=== PATIENT | female | born 1990 | race Caucasian/White ===

== ENCOUNTER 2016-12-07 22:48 | Inpatient (IN) | payer BC, MEDICAID ==
[~2016-12-07] VITALS: Ht 129.5 cm; Wt 58.0 kg
--- NOTE | ~2016-12-07 | DS ---
[facility] AGE: 26 Y [address] ROOM: [place] [address] LOCATION: [facility] ADMIT DATE: 12/07/2016 Discharge Summary DISCHARGE DATE: 12/11/2016 FAMILY PHYSICIAN: Sumeet Garcia MD ATTENDING PHYSICIAN: Kj Toledo DISCHARGE DIAGNOSES: 1. Arrest of labor. 2. 31 weeks 6 day IUP. 3. Tobacco abuse. REASON FOR ADMISSION: labor. PROCEDURES DURING ADMISSION: None. HOSPITAL COURSE: The patient is a 26-year-old, G2, P1 who presented to [place] on 12/07 complaining of contractions. She was found to be 3-4 cm dilated. She was given Celestone for lung maturity. She was started on clindamycin for GBS prophylaxis and magnesium sulfate for tocolysis as well as neural protection. The patient was subsequently transferred to [facility] where she was found to still be 4 cm dilated. She did receive her second dose of Celestone on 12/08. Her magnesium was continued for another 24 hours after her second dose of Celestone. The patient remained stable throughout her stay without any more contractions. On 12/11, she was found to be still 450 and high. Her GBS culture did come back negative during her admission and she was deemed stable for discharge. DISCHARGE MEDICATIONS: 1. Colace. 2. vitamins. DISCHARGE INSTRUCTIONS: The patient is instructed to call our office number with contractions, vaginal bleeding, rupture of membranes, or no movement. She was also instructed on pelvic rest and to limit her activity to only necessary activities. FOLLOWUP: The patient will follow up later this week in our office. MD ERLINDA ROB/rock PATIENT'S NAME: [facility] AGE: 26 Y [address] ROOM: [place] [address] LOCATION: [facility] ADMIT DATE: 12/07/2016 Discharge Summary DISCHARGE DATE: 12/11/2016 FAMILY PHYSICIAN: Sumeet Garcia MD ATTENDING PHYSICIAN: Kj Toledo /[id number] d: 12/11/16 0729 t: 12/13/16 1131, DISCHARGE SUMMARY
--- NOTE | ~2016-12-07 | DS ---
PATIENT'S NAME: MARIALUISA MURRAY [facility] AGE: 26 Y [address] [place] [facility] [place] [place], [place] [address] LOCATION: [facility] ADMIT DATE: 12/07/2016 Discharge Summary DISCHARGE DATE: 12/11/2016 FAMILY PHYSICIAN: Sumeet Garcia MD ATTENDING PHYSICIAN: Kj Toledo DISCHARGE DIAGNOSES: 1. Arrested labor. 2. A 31-week 6-day intrauterine . 3. Tobacco abuse. REASON FOR ADMISSION: labor. PROCEDURES DURING ADMISSION: None. HOSPITAL COURSE: The patient is a 26-year-old , who presented to the emergency room in [place] on 12/07 complaining of contractions. She was found to be 3 to 4 cm dilated. She was given Celestone, clindamycin, and magnesium sulfate, and was subsequently transferred to [facility]. The patient received her second dose of Celestone on 12/08 and magnesium was continued until 24 hours after the last dose. The patient remained 4 cm dilated. On hospital day #5, she was checked and found to still be 4, 50 and high, and thus was deemed stable for discharge. DISCHARGE MEDICATIONS: 1. vitamin. 2. Colace. DISCHARGE INSTRUCTIONS: The patient was instructed to call with vaginal bleeding, loss of fluid, or irregular contractions. She was instructed on pelvic rest. FOLLOWUP: The patient will follow up later this week in our office. She was given our office number prior to discharge and was instructed to call with any concerns. MD ERLINDA ROB/rock /[id number] d: 12/11/16 0653 t: 12/13/16 1129, DISCHARGE SUMMARY
[2016-12-07] MEDS ORDERED: PRENATAL 1+1)(P1 TAB PO (23:59)
[2016-12-07] MEDS ORDERED: PHENERGAN25 M1 PO (23:59)
[2016-12-08 00:53] LABS: BASOPHIL # 0.1 K/uL (0.0-0.2); BASOPHIL % 0.3 %; EOSINOPHIL % 0.1 %; HEMATOCRIT 34.9 % (33.0-46.0); IMMATURE GRANULOCYTE # 0.5 K/uL (0.0-0.3); IMMATURE GRANULOCYTE % 2.5 %; LYMPHOCYTE # 2.1 K/uL (0.8-4.0); LYMPHOCYTE % 9.7 %; MCHC 34.4 gm/dL (32.0-36.5); MCV 95.9 fl (83.0-98.0); MONOCYTE # 0.5 K/uL (0.0-1.0); MONOCYTE % 2.4 %; MPV 9.1 fl (9.4-12.4); NRBC % 0 /100WBC (0-0.00); PLATELET COUNT 273 K/uL (150-450); RBC 3.64 M/uL (3.50-5.00); RDW-CV 11.8 % (11.9-14.6)
[2016-12-08 00:55] LABS: WBC 21.2 K/uL (4.0-11.0)
--- NOTE | 2016-12-08 12:06 | NUR ---
I supervised students nurse in cares and meds. Frances Head RN
[2016-12-11] MEDS ORDERED: COLACE100 MG PO (11:09)
--- NOTE | 2016-12-11 16:33 | NUR ---
Consult received 0730 today to assist with getting patient a room at the [facility] through . Patient is able to discharge from the hospital, but Dr. Bowser does not want her leaving [place] for a few more days due to labor. Dr. Bowser wants to see her in the office on 12/14 and would like patient to stay at the [facility] until then to be close to the hospital. I met with patient and she had Medicaid. Nursing staff had already arranged for the [facility]. Provided patient with meal vouchers for Sunday and Sunday. Also provided her with a pair of slippers because she did not have shoes with her here since she was brought in by ambulance from [place]. Gave her a taxi voucher so she has a way to get to Dr. Granados office on . No other needs at this time.
== END 2016-12-11 11:30 | disposition disaster alternative care site (69) | DRG 778 ==
LOC: GOBS 23:18
PROVIDERS: ADMIT Obstetrics & Gynecology
DX: O60.03 Preterm labor without delivery, third trimester (principal); F17.200 Nicotine dependence, unspecified, uncomplicated; Z3A.31 31 weeks gestation of pregnancy; O99.334 Smoking (tobacco) complicating childbirth
CPT/HCPCS: J0610; J0702; J2405; J3475